=== PATIENT | male | born 1950 | race Caucasian/White ===

== ENCOUNTER 2017-03-07 15:05 | Observation (INO) | payer BC, MEDICARE ==
[2017-03-07] MEDS ORDERED: Ketorolac 30 MG/ML SDV IVPUSH ONE (15:20)
[2017-03-07] MEDS ORDERED: methylPREDNISolone Sodium Succinate 125 MG/2 ML SDV IVPUSH ONE (15:20)
[2017-03-07] MEDS ORDERED: HYDROmorphone 1 MG/ML Syringe IVPUSH ONE (16:06)
[2017-03-07] MEDS ORDERED: Ondansetron 4 MG/2 ML SDV IVPUSH ONE (16:06)
--- NOTE | 2017-03-07 17:21 | EDM.PDOC ---
ED HPI GENERAL MEDICAL PROBLEM - General Chief Complaint: Lower Extremity Injury/Pain Stated Complaint: right hip Time Seen by Provider: 03/07/17 15:07 Source of Information: Reports: Patient History Limitations: Reports: No Limitations - History of Present Illness INITIAL COMMENTS - FREE TEXT/NARRATIVE: Patient comes to ER with complaint of right hip pain. Points to area in right buttocks as area most uncomfortable. First noted mild discomfort there after he fell onto his buttocks three times from a standing position while trying to trim some tree limbs several days ago. Applied ice. Noted that when he was laying in bed last night that his right leg felt somewhat numb all the way to his toes. His description of numbness/discomfort pattern was consistent with sciatic distribution. Denies having sciatica in past. 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 [place] sharp pain, fell to ground. Laid on ground for approximately a half hour and tried to stretch leg, hoped pain would go away. Ultimately he was helped up by a neighbor and was driven to the ER. Denies other injuries. No other complaints. 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 Pain Score (Numeric/FACES): 5 - Related Data Allergies Allergy/AdvReac Type Severity Reaction Status Date / Time amoxicillin [From Augmentin] Allergy Rash Verified 03/07/17 15:10 clavulanic acid Allergy Rash Verified 03/07/17 15:10 [From Augmentin] hydrocodone Allergy Nausea and Verified 03/07/17 15:10 Vomiting Home Meds: Home Meds Insulin Aspart [NovoLOG] 4 unit SUBCUT TIDAC 01/02/16 [History] Insulin Detemir [Levemir] 15 unit SUBCUT BEDTIME 01/02/16 [History] Levothyroxine 75 mcg PO ACBREAKFAST 01/02/16 [History] Loratadine [Claritin] 10 mg PO DAILY PRN 03/19/16 [History] Calcium Carbonate/Vitamin D3 [Calcium 600-Vit D3 800 Tab] 1 tab PO DAILY [History] Lysine HCl [l-Lysine] 500 mg PO DAILY PRN 05/09/16 [History] Tamsulosin [Flomax] 0.8 mg PO BEDTIME 05/09/16 [History] Ubidecarenone [Coenzyme Q-10] 200 mg PO DAILY 05/09/16 [History] Aspirin [Children's Aspirin] 81 mg PO DAILY 05/19/16 [History] Finasteride [Proscar] 5 mg PO DAILY 05/19/16 [History] Pitavastatin [Livalo] 2 mg PO BEDTIME 05/19/16 [History] Past Medical History HEENT History: Reports: Allergic Rhinitis, Hard of Hearing, Otitis Media Other HEENT History: Hearing aid therapy Cardiovascular History: Reports: High Cholesterol, Other (See Below) Other Cardiovascular History: Dyslipidemia Respiratory History: Reports: COPD, Other (See Below) Other Respiratory History: COPD by chest x-ray with no current medical therapy Gastrointestinal History: Reports: None Genitourinary History: Reports: BPH, Chronic Renal Insuffiency, Diabetic Nephropathy, Hydronephrosis, Renal Calculus, Other (See Below) Other Genitourinary History: Stage III chronic renal insufficiency/diabetic nephropathy, BPH with no history of urinary retention or procedures, bilateral nephrolithiasis mostly on the left side with history of initial mild hydronephrosis on 08/02/10 and then again moderate on 04/10/12 Musculoskeletal History: Reports: Amputation, Other (See Below) Other Musculoskeletal History: 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 on 03/19/16 with surgery as below Neurological History: Reports: None Psychiatric History: Reports: None Endocrine/Metabolic History: Reports: Diabetes, Type II, Hypothyroidism, IDDM Hematologic History: Reports: None Immunologic History: Reports: None Oncologic (Cancer) History: Reports: None Dermatologic History: Reports: None - Infectious Disease History Infectious Disease History: Reports: Chicken Pox, Measles, Mumps - Past Surgical History Head Surgeries/Procedures: Reports: None HEENT Surgical History: Reports: Oral Surgery GI Surgical History: Reports: None Musculoskeletal Surgical History: Reports: Amputation, Other (See Below) Oncologic Surgical History: Reports: None Dermatological Surgical History: Reports: None - Past Imaging History Past Imaging History: Reports: CAT Scan, MRI, Ultrasound Social & Family History - Tobacco Use Smoking Status *Q: Never Smoker Second Hand Smoke Exposure: No - Caffeine Use Caffeine Use: Reports: None - Alcohol Use Days Per Week of Alcohol Use: 0 Number of Drinks Per Day: 0 Total Drinks Per Week: 0 - Recreational Drug Use Recreational Drug Use: No Drug Use in Last 12 Months: No - Living Situation & Occupation Living situation: Reports: , with Family Occupation: Employed Review of Systems - Review of Systems Review Of Systems: See Below Constitutional: Reports: No Symptoms Eyes: Denies: Vision Change Ears: Reports: No Symptoms Nose: Reports: No Symptoms Mouth/Throat: Reports: No Symptoms Respiratory: Reports: No Symptoms Cardiovascular: Reports: No Symptoms GI/Abdominal: Reports: No Symptoms Genitourinary: Reports: No Symptoms. Denies: Incontinence Musculoskeletal: Reports: Other (right sided pain in hip/buttocks). Denies: Joint Swelling Skin: Reports: No Symptoms Neurological: Reports: Difficulty Walking (due to pain), Other (numbness/pain in sciatic pattern on right). Denies: Confusion, Dizziness, Headache, Weakness Psychiatric: Reports: No Symptoms ED EXAM, GENERAL - Physical Exam Exam: See Below Exam Limited By: Physical Impairment (pain with movement of right hip/leg) General Appearance: Alert, WD/WN, Moderate Distress Eye Exam: Bilateral Eye: EOMI, PERRL Ears: Normal External Exam Nose: No: Nasal Deformity, Nasal Swelling, Nasal Drainage Throat/Mouth: Normal Inspection, Normal Lips, Normal Voice, No Airway Compromise Head: Atraumatic, Normocephalic Neck: Normal Inspection, Supple, Non-Tender, Full Range of Motion. No: Carotid Bruit Respiratory/Chest: No Respiratory Distress, Lungs Clear, Normal Breath Sounds, No Accessory Muscle Use, Chest Non-Tender Cardiovascular: Normal Peripheral Pulses, Regular Rate, Rhythm, No Edema, No Gallop, No Murmur Peripheral Pulses: 2+: Radial (L), Radial (R), Dorsalis Pedis (L), Dorsalis Pedis (R) GI/Abdominal: Normal Bowel Sounds, Non-Tender, No Distention (Male) Exam: Deferred Rectal (Males) Exam: Deferred Back Exam: No: CVA Tenderness (L), CVA Tenderness (R), Muscle Spasm, Paraspinal Tenderness, Vertebral Tenderness Extremities: No Pedal Edema, Normal Capillary Refill, Limited Range of Motion ( due to pain right lower extremity. Tender near sciatic notch on right. ). No: Pedal Edema, Leg Pain Neurological: Alert, Normal Cognition, Normal Reflexes, Other (no localized sensory deficits) Psychiatric: Normal Affect, Normal Mood Skin Exam: Warm, Dry, Intact, Normal Color Course - Vital Signs Last Recorded V/S: Last Vital Signs Temp 36.8 C 03/07/17 15:24 Pulse 63 03/07/17 15:24 Resp 20 03/07/17 15:24 BP 149/77 H 03/07/17 15:24 Pulse Ox 98 03/07/17 15:24 - Orders/Labs/Meds Orders: Active Orders 24 hr Category Date Time Status Hip Min 2V or 3V w Pelvis Rt [CR] Stat Exams 03/07/17 15:19 Taken UA W/MICROSCOPIC [URIN] Stat Lab 03/07/17 15:15 Uncollected Labs: Laboratory Tests 03/07/17 03/07/17 Range/Units 15:06 15:06 WBC 8.9 (4.0-10.2) K/uL RBC 4.69 (4.33-5.41) M/uL Hgb 14.7 (13.1-16.8) g/dL Hct 43.0 (39.0-49.0) % MCV 91.7 (84.0-98.0) fL MCH 31.3 (28.2-33.3) pg MCHC 34.2 (31.7-36.0) g/dL RDW 13.3 (11.2-14.1) % Plt Count 251 (150-350) K/uL Neut % (Auto) 59.9 (45.0-80.0) % Lymph % (Auto) 28.6 (10.0-50.0) % [place] % (Auto) 9.4 (2.0-14.0) % Eos % (Auto) 1.9 (0.0-5.0) % Baso % (Auto) 0.2 (0.0-2.0) % Neut # (Auto) 5.33 (1.40-7.00) K/uL Lymph # (Auto) 2.55 (0.50-3.50) K/uL [place] # (Auto) 0.84 (0.00-1.00) K/uL Eos # (Auto) 0.17 (0.00-0.50) K/uL Baso # (Auto) 0.02 (0.00-0.20) K/uL Sodium 140 (136-145) mmol/L Potassium 3.7 (3.5-5.1) mmol/L Chloride 105 (98-107) mmol/L Carbon Dioxide 27.3 (21.0-32.0) mmol/L BUN 25 H (7-18) mg/dL Creatinine 1.62 H (0.51-1.17) mg/dL Est Cr Clr Drug Dosing 43.40 mL/min Estimated GFR (MDRD) 43 mL/min Glucose 125 H (74-106) mg/dL Calcium 9.7 (8.5-10.1) mg/dL Meds: Medications Discontinued Medications Generic Name Dose Route Start Last Admin Trade Name Francoisq PRN Reason Stop Dose Admin Hydromorphone HCl 1 mg 03/07/17 16:06 03/07/17 16:19 Dilaudid IVPUSH 03/07/17 16:07 1 mg ONETIME ONE Administration Ketorolac Tromethamine 30 mg 03/07/17 15:20 03/07/17 15:35 Toradol IVPUSH 03/07/17 15:21 30 mg ONETIME ONE Administration Methylprednisolone Sodium Succinate 125 mg 03/07/17 15:20 03/07/17 15:35 Solu-Medrol IVPUSH 03/07/17 15:21 125 mg ONETIME ONE Administration Ondansetron HCl 4 mg 03/07/17 16:06 03/07/17 16:20 Zofran IVPUSH 03/07/17 16:07 4 mg ONETIME ONE Administration - Radiology Interpretation Free Text/Narrative:: plain films pelvis/hip unremarkable. - Re-Assessments/Exams Free Text/Narrative Re-Assessment/Exam: 03/07/17 17:26 Patient given Solumedrol, Toradol, and ultimately Dilaudid with some improvement of discomfort. Baseline labs drawn. Still unable to ambulate due to continued pain. Plan is to admit to observation and continue pain management and support patient in ADLs. CT of lumbar/sacral area ordered to rule out compression fracture given the recent falls with patient landing directly on buttocks. Anticipate 1-2 days of observation while waiting for steroids to help with inflammation and pain, unless new compression fracture or other fracture is identified. 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 (CURRENT) USE OF INSULIN Status: Chronic Priority: Medium Current Visit: No Annotation/Comment:: Sugars have been under good control by his history (4) Diabetic nephropathy Status: Chronic Priority: Medium Current Visit: No Qualifiers: Diabetes mellitus type: type 2 Qualified Code(s): E11.21 - Type 2 diabetes mellitus with diabetic nephropathy (5) BPH (benign prostatic hyperplasia) SNOMED Code(s): 295660150 Code(s): N40.0 - BENIGN PROSTATIC HYPERPLASIA WITHOUT LOWER URINRY TRACT SYMP Status: Chronic Priority: Medium Current Visit: No Annotation/ Comment:: No UTI symptoms or problems with urinary incontinence or retention Qualifiers: Lower urinary tract symptom presence: symptoms absent Qualified Code(s): N40.0 - Benign prostatic hyperplasia without lower urinary tract symptoms (6) COPD (chronic obstructive pulmonary disease) SNOMED Code(s): 59187582 Code(s): J44.9 - CHRONIC OBSTRUCTIVE PULMONARY DISEASE, UNSPECIFIED Status : Chronic Priority: Medium Current Visit: No Annotation/Comment:: currently stable Qualifiers: COPD type: emphysema Emphysema type: panlobular Qualified Code(s): J43.1 - Panlobular emphysema - Problem List Review Problem List Initiated/Reviewed/Updated: Yes - My Orders Last 24 Hours: My Active Orders 03/07/17 15:15 UA W/MICROSCOPIC [URIN] Stat 03/07/17 15:19 Hip Min 2V or 3V w Pelvis Rt [CR] Stat - Assessment/Plan Admission H&P: Please use this note as an admission H&P Last 24 Hours: My Active Orders 03/07/17 15:15 UA W/MICROSCOPIC [URIN] Stat 03/07/17 15:19 Hip Min 2V or 3V w Pelvis Rt [CR] Stat Assessment:: as above Plan: as above. Stable for general supervision.
[2017-03-07] MEDS ORDERED: Ondansetron 4 MG/2 ML SDV IVPUSH PRN (17:39)
[2017-03-07] MEDS ORDERED: LYSINE HCL 500 MG PO PRN (17:40)
[2017-03-07] MEDS ORDERED: Loratadine 10 MG Tab PO PRN (18:00)
[2017-03-07] MEDS ORDERED: Sodium Chloride 0.9% 1,000 ML IV SCH (18:15)
[2017-03-07] MEDS ORDERED: Lidocaine 5% 700 MG Patch TOP SCH (18:30)
[2017-03-07] MEDS ORDERED: PITAVASTATIN 2 MG PO SCH (20:00)
[2017-03-07] MEDS ORDERED: Tamsulosin 0.4 MG Cap.ER PO SCH (20:00)
[2017-03-07] MEDS ORDERED: Insulin Detemir 100 Units/ML 3 ML Pen SUBCUT SCH (20:00)
[2017-03-07] MEDS ORDERED: TRESIBA SUBCUT SCH (21:00)
[2017-03-07] MEDS ORDERED: atorvaSTATin 10 MG Tab PO SCH (21:00)
[2017-03-07] MEDS: Morphine 2 MG/ML Syringe IVPUSH PRN ×2 (21:21→23:25)
[2017-03-08] MEDS: Morphine 2 MG/ML Syringe IVPUSH PRN ×4 (00:39→09:03)
[2017-03-08] MEDS: Sodium Chloride 0.9% 10 ML Syringe FLUSH PRN ×3 (00:40→14:55)
[2017-03-08] MEDS ORDERED: traMADol 50 MG Tab PO PRN (01:27)
[2017-03-08] MEDS: Diazepam 5 MG Tab PO PRN ×2 (01:45→08:26)
[2017-03-08] MEDS ORDERED: Insulin Aspart 100 Units/ML 3 ML Pen SUBCUT SCH (07:00)
[2017-03-08] MEDS ORDERED: Levothyroxine 75 MCG Tab PO SCH (07:30)
[2017-03-08] MEDS ORDERED: Finasteride 5 MG Tab PO SCH (08:00)
[2017-03-08] MEDS ORDERED: Calcium Carbonate/Vitamin D3 1500 MG-400 Units Tab PO SCH (08:00)
[2017-03-08] MEDS ORDERED: Aspirin 81 MG Tab.EC PO SCH (08:00)
[2017-03-08] MEDS: Insulin Aspart 100 Units/ML 3 ML Pen SUBCUT SCH ×2 (08:05→11:27)
[2017-03-08 08:44] VITALS: BP 116/65
[2017-03-08] MEDS ORDERED: Morphine 4 MG/ML Syringe SUBCUT PRN (09:11)
--- NOTE | 2017-03-08 12:25 | PCM.DCSUM1 ---
Discharge Summary - Discharge Data Discharge Date: 03/08/17 Discharge Disposition: DC/Tfer to Acute Hospital 02 Condition: Good - Discharge Diagnosis/Problem(s) (1) Acute right-sided back pain with sciatica SNOMED Code(s): 567927208 ICD Code: M54.41 - LUMBAGO WITH SCIATICA, RIGHT SIDE Status: Acute Priority: High Current Visit: Yes Onset Date: ~03/07/17 Problem Details: Continued pain. Unremarkable CT of LS yesterday. Plan at this time is to transfer patient to [facility] in order to obtain MRI study. Neuro Surgery consult if indicated. 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 Status: Chronic Priority: Medium Current Visit: No Problem Details: Sugars have been under good control by his history (4) Diabetic nephropathy Status: Chronic Priority: Medium Current Visit: No Qualifiers: Diabetes mellitus type: type 2 Qualified Code(s): E11.21 - Type 2 diabetes mellitus with diabetic nephropathy (5) BPH (benign prostatic hyperplasia) SNOMED Code(s): 528392098 ICD Code: N40.0 - BENIGN PROSTATIC HYPERPLASIA WITHOUT LOWER URINRY TRACT SYMP Status: Chronic Priority: Medium Current Visit: No Problem Details : No UTI symptoms or problems with urinary incontinence or retention Qualifiers: Lower urinary tract symptom presence: symptoms absent Qualified Code(s): N40.0 - Benign prostatic hyperplasia without lower urinary tract symptoms (6) COPD (chronic obstructive pulmonary disease) SNOMED Code(s): 39614505 ICD Code: J44.9 - CHRONIC OBSTRUCTIVE PULMONARY DISEASE, UNSPECIFIED Status : Chronic Priority: Medium Current Visit: No Problem Details: currently stable Qualifiers: COPD type: emphysema Emphysema type: panlobular Qualified Code(s): J43.1 - Panlobular emphysema - Patient Summary/Data Complications: None Hospital Course: Pain somewhat improved with medication but still quite problematic, especially when patient attempts to sit up or ambulate. - Discharge Plan Home Medications: Home Meds Insulin Aspart [NovoLOG] 6 unit SUBCUT TIDAC 01/02/16 [History] Levothyroxine 75 mcg PO ACBREAKFAST 01/02/16 [History] Loratadine [Claritin] 10 mg PO DAILY PRN 03/19/16 [History] Calcium Carbonate/Vitamin D3 [Calcium 600-Vit D3 800 Tab] 1 tab PO DAILY [History] Lysine HCl [l-Lysine] 500 mg PO DAILY PRN 05/09/16 [History] Tamsulosin [Flomax] 0.8 mg PO BEDTIME 05/09/16 [History] Ubidecarenone [Coenzyme Q-10] 200 mg PO BEDTIME 05/09/16 [History] Aspirin [Children's Aspirin] 81 mg PO DAILY 05/19/16 [History] Finasteride [Proscar] 5 mg PO DAILY 05/19/16 [History] Insulin Degludec [Tresiba Flextouch U-200] 18 unit SUBCUT BEDTIME 03/07/17 [ History] atorvaSTATin [Lipitor] 20 mg PO BEDTIME 03/07/17 [History] Patient Handouts: Sciatica Forms: ED Department Discharge Referrals: Lakesha Mcconnell CASE MANAGEMENT SOCIAL WORKER [Primary Care Provider] - - Discharge Summary/Plan Comment DC Time >30 min.: No - General Info Date of Service: 03/08/17 Admission Dx/Problem (Free Text: Right low back pain/sciatica Functional Status: Reports: Tolerating Diet, Other (Pain improved but still present. ). Denies: New Symptoms - Review of Systems General: Reports: No Symptoms HEENT: Reports: No Symptoms Pulmonary: Reports: No Symptoms Cardiovascular: Reports: No Symptoms Gastrointestinal: Reports: No Symptoms Genitourinary: Reports: No Symptoms Musculoskeletal: Reports: Back Pain, Leg Pain Skin: Reports: No Symptoms Neurological: Reports: Paresthesia (at times, right leg), Difficulty Walking ( due to pain) Psychiatric: Reports: No Symptoms - Patient Data Vitals - Most Recent: Last Vital Signs Temp 36.1 C 03/08/17 08:00 Pulse 85 03/08/17 08:00 Resp 18 03/08/17 00:00 BP 116/65 03/08/17 08:00 Pulse Ox 93 L 03/08/17 08:00 Weight - Most Recent: 80.286 kg I&O - Last 24 hours: Intake & Output 03/07/17 03/08/17 03/08/17 22:59 06:59 14:59 Intake Total 240 1000 360 Output Total 750 Balance 240 250 360 Lab Results - Last 24 hrs: Laboratory Results - last 24 hr 03/07/17 03/07/17 03/07/17 Range/Units 18:10 18:17 20:58 POC Glucose 136 H 257 H* (65-110) mg/dl Specimen Type Urinvoid Urine Color Yellow Urine Appearance Cloudy Urine pH 5.0 (5.0-9.0) Ur Specific [place] 1.025 (1.005-1.030) Urine Protein Negative (NEGATIVE) mg/dL Urine Glucose (UA) 100 H (NEGATIVE) mg/dL Urine Ketones Negative (NEGATIVE) mg/dL Urine Occult Blood Negative (NEGATIVE) Urine Nitrite Negative (NEGATIVE) Urine Bilirubin Negative (NEGATIVE) Urine Urobilinogen 0.2 (0.2-1.0) E.U./dL Ur Leukocyte Esterase Negative (NEGATIVE) Urine RBC Not seen /HPF Urine WBC 0-5 /HPF Ur Epithelial Cells Rare /LPF Amorphous Sediment Many H (0/HPF) /HPF Urine Bacteria Few (NONE TO FEW) /HPF 03/08/17 03/08/17 Range/Units 07:50 11:19 POC Glucose 241 H 237 H (65-110) mg/dl Specimen Type Urine Color Urine Appearance Urine pH (5.0-9.0) Ur Specific [place] (1.005-1.030) Urine Protein (NEGATIVE) mg/dL Urine Glucose (UA) (NEGATIVE) mg/dL Urine Ketones (NEGATIVE) mg/dL Urine Occult Blood (NEGATIVE) Urine Nitrite (NEGATIVE) Urine Bilirubin (NEGATIVE) Urine Urobilinogen (0.2-1.0) E.U./dL Ur Leukocyte Esterase (NEGATIVE) Urine RBC /HPF Urine WBC /HPF Ur Epithelial Cells /LPF Amorphous Sediment (0/HPF) /HPF Urine Bacteria (NONE TO FEW) /HPF Med Orders - Current: Current Medications Aspirin (Halfprin) 81 mg PO DAILY [facility] Last Admin: 03/08/17 07:52 Dose: 81 mg Atorvastatin Calcium (Lipitor) 20 mg PO BEDTIME [facility] Last Admin: 03/07/17 21:12 Dose: 20 mg Calcium Carbonate (Caltrate 600+D 1500 Mg-400 Units) 1 tab PO DAILY [facility] Last Admin: 03/08/17 07:52 Dose: 1 tab Coenzyme Q10 (Coenzyme Q10) 200 mg PO BEDTIME [facility] Last Admin: 03/07/17 21:13 Dose: 200 mg Diazepam (Valium.) 5 mg PO TID PRN PRN Reason: Spasms Last Admin: 03/08/17 08:26 Dose: 5 mg Finasteride (Proscar) 5 mg PO DAILY [facility] Last Admin: 03/08/17 07:52 Dose: 5 mg Insulin Aspart (Novolog) 6 unit SUBCUT TIDAC [facility] Last Admin: 03/08/17 11:27 Dose: 6 unit Levothyroxine Sodium (Levothyroxine) 75 mcg PO ACBREAKFAST [facility] Last Admin: 03/08/17 07:53 Dose: 75 mcg Lidocaine (Lidoderm 5%) 700 mg TOP BEDTIME [facility] Last Admin: 03/07/17 18:59 Dose: 700 mg Loratadine (Claritin) 10 mg PO DAILY PRN PRN Reason: Allergies Miscellaneous Information (Remove Patch) 1 ea TRDERM DAILY [facility] Last Admin: 03/08/17 07:53 Dose: 1 ea Morphine Sulfate (Morphine) 2 mg IVPUSH Q1H PRN PRN Reason: Pain (moderate 4-6) Last Admin: 03/08/17 09:03 Dose: 2 mg Non-Formulary Medication (Lysine Hcl [L-Lysine]) 500 mg PO DAILY PRN PRN Reason: cold sores Ondansetron HCl (Zofran) 4 mg IVPUSH Q6H PRN PRN Reason: Nausea/Vomiting Last Admin: 03/07/17 23:25 Dose: 4 mg Tresiba (Insulin Degludec) Flextouch Own Med 0 each SUBCUT BEDTIME [facility] Last Admin: 03/07/17 21:13 Dose: 18 each Sodium Chloride (Saline Flush) 10 ml FLUSH ASDIRECTED PRN PRN Reason: Keep Vein Open Last Admin: 03/08/17 04:29 Dose: 10 ml Tamsulosin HCl (Flomax) 0.8 mg PO BEDTIME [facility] Last Admin: 03/07/17 21:12 Dose: 0.8 mg Tramadol HCl (Ultram) 100 mg PO Q8H PRN PRN Reason: Pain Last Admin: 03/08/17 01:45 Dose: 100 mg Discontinued Medications Coenzyme Q10 (Coenzyme Q10) 200 mg PO DAILY [facility] Hydromorphone HCl (Dilaudid) 1 mg IVPUSH ONETIME ONE Stop: 03/07/17 16:07 Last Admin: 03/07/17 16:19 Dose: 1 mg Sodium Chloride (Normal Saline) 1,000 mls @ 150 mls/hr IV ASDIRECTED [facility] Stop: 03/08/17 00:54 Last Admin: 03/07/17 18:59 Dose: 150 mls/hr Insulin Aspart (Novolog) 4 unit SUBCUT TIDAC [facility] Insulin Detemir (Levemir) 15 unit SUBCUT BEDTIME [facility] Last Admin: 03/07/17 22:03 Dose: Not Given Ketorolac Tromethamine (Toradol) 30 mg IVPUSH ONETIME ONE Stop: 03/07/17 15:21 Last Admin: 03/07/17 15:35 Dose: 30 mg Methylprednisolone Sodium Succinate (Solu-Medrol) 125 mg IVPUSH ONETIME ONE Stop: 03/07/17 15:21 Last Admin: 03/07/17 15:35 Dose: 125 mg Morphine Sulfate (Morphine) 3 mg SUBCUT Q2H PRN PRN Reason: Pain Non-Formulary Medication (Pitavastatin [Livalo]) 2 mg PO BEDTIME [facility] Last Admin: 03/07/17 22:03 Dose: Not Given Ondansetron HCl (Zofran) 4 mg IVPUSH ONETIME ONE Stop: 03/07/17 16:07 Last Admin: 03/07/17 16:20 Dose: 4 mg - Exam General: Reports: Alert, Oriented HEENT: Reports: Pupils Equal, Pupils Reactive, EOMI, Mucous Membr. Moist/[place] Neck: Reports: Supple Lungs: Reports: Clear to Auscultation, Normal Respiratory Effort Cardiovascular: Reports: Regular Rate, Regular Rhythm GI/Abdominal Exam: Normal Bowel Sounds, Soft, Non-Tender, No Distention (Male) Exam: Deferred Rectal (Males) Exam: Deferred Back Exam: Reports: Other (Tender near sciatic notch right buttock area). Denies: CVA Tenderness (L), CVA Tenderness (R), Paraspinal Tenderness, Vertebral Tenderness Extremities: No Pedal Edema, Normal Capillary Refill, Limited Range of Motion ( right leg due to pain originating in hip area on right) Skin: Reports: Warm, Dry, Intact Neurological: Reports: No New Focal Deficit, Other (Diminished reflex noted right patella when compared to left. Strength appears to be symetric in limbs, some limitation in testing due to patient's pain complaint. ) Psy/Mental Status: Reports: Alert, Normal Affect, Normal Mood *Q Meaningful Use (DIS) - VTE *Q VTE Criteria *Q: - Stroke *Q Stroke Criteria *Q: - AMI *Q AMI Criteria *Q:
[2017-03-08] MEDS ORDERED: Morphine 10 MG/ML Syringe IVPUSH ONE (12:32)
[2017-03-08] MEDS ORDERED: Morphine 10 MG/ML Syringe ONE (14:49)
== END 2017-03-08 15:10 ==
LOC: LL.ED 15:05 → LL.MS 17:06
PROVIDERS: ADMIT Emergency Medicine; ATTEND Emergency Medicine
DX: M54.41 Lumbago with sciatica, right side (principal); N18.3 Chronic kidney disease, stage 3 (moderate); E11.22 Type 2 diabetes mellitus with diabetic chronic kidney disease; E78.5 Hyperlipidemia, unspecified; E11.21 Type 2 diabetes mellitus with diabetic nephropathy; Z79.4 Long term (current) use of insulin; E03.9 Hypothyroidism, unspecified; N40.0 Benign prostatic hyperplasia without lower urinary tract symptoms; J43.1 Panlobular emphysema; Z79.82 Long term (current) use of aspirin; Z79.899 Other long term (current) drug therapy; Z88.1 Allergy status to other antibiotic agents; Z88.8 Allergy status to other drugs, medicaments and biological substances; Z98.890 Other specified postprocedural states
CPT/HCPCS: 36415; 72131; 73502; 80048; 81001; 82962; 85025; 96361; 96374; 96375; 96376; 99285; A9270; G0378; J1170; J1815; J1885; J2270; J2405; J2930; J7030; J7050

== ENCOUNTER 2019-08-01 09:23 | Observation (INO) | payer MEDICARE, BC ==
--- NOTE | 2019-08-01 09:26 | EDM.PDOC ---
ED HPI GENERAL MEDICAL PROBLEM - General Chief Complaint: General Stated Complaint: shortness of breath Time Seen by Provider: 08/01/19 09:26 Source of Information: Reports: Patient, Family (, daughter), Old Records ( [facility] chart/EMR) History Limitations: Reports: No Limitations - History of Present Illness INITIAL COMMENTS - FREE TEXT/NARRATIVE: The patient was referred to the emergency room by OUMAR Briggs from [facility] for evaluation of mild URI symptoms associated with progressive moderate dyspnea since 07/28/19. Note that during this provider's evaluation the patient had bradycardia at 30-40s was noted with patient immediately brought to the emergency room for further evaluation. The patient did drive himself to the clinic initially for initial evaluation. The patient denies any chest pain/ pressure, heart flutter, dizziness, orthostasis, orthopnea, diaphoresis, paresthesias, recent decreased exercise tolerance, or any other anginal-type symptoms. No recent history of abdominal pain, heartburn, nausea, diarrhea, melena, gross hematochezia, or any food intolerance, including fatty foods, etc.. He denies any a gross hematuria, colic, or other UTI symptoms. The patient is normally physically active with no history of fall, injury, etc. The patient also denies any recent fever, cough, wheezing, etc. with mild URI symptoms as above. No history of known exposure to infection or history of travel with the patient receiving his influenza booster this season. He denies any specific pain or discomfort. He did not take his medications this morning. Onset: Gradual Onset Date: 07/28/19 Duration: Getting Worse Location: Reports: Other (No pain) Quality: Reports: Same as Previous Episode Severity: Moderate Improves with: Reports: Rest Worsens with: Reports: Other (Activity/walking) Context: Reports: Activity, Other (As above). Denies: Sick Contact, Trauma Associated Symptoms: Reports: Shortness of Breath. Denies: Chest Pain, Cough, cough w sputum, Diaphoresis, Fever/Chills, Headaches, Loss of Appetite, Malaise , Nausea/Vomiting, Syncope, Weakness Treatments TRAVELING REPRESENTATIVE: Reports: Other (see below) (None) - Related Data Allergies Allergy/AdvReac Type Severity Reaction Status Date / Time amoxicillin [From Augmentin] Allergy Rash Verified 08/01/19 09:24 cephalexin [From Keflex] Allergy Rash Verified 08/01/19 10:04 clavulanic acid Allergy Rash Verified 08/01/19 09:24 [From Augmentin] hydrocodone Allergy Nausea and Verified 08/01/19 09:24 Vomiting Home Meds: Home Meds Insulin Aspart [NovoLOG] 10 unit SUBCUT TIDAC 01/02/16 [History] Levothyroxine 75 mcg PO BEDTIME 01/02/16 [History] Loratadine [Claritin] 10 mg PO DAILY PRN 03/19/16 [History] Calcium Carbonate/Vitamin D3 [Calcium 600-Vit D3 800 Tab] 1 tab PO DAILY [History] Tamsulosin [Flomax] 0.8 mg PO BEDTIME 05/09/16 [History] Ubidecarenone [Coenzyme Q-10] 100 mg PO BEDTIME 05/09/16 [History] Aspirin [Children's Aspirin] 81 mg PO BEDTIME 05/19/16 [History] Insulin Degludec [Tresiba Flextouch U-200] 30 unit SUBCUT BEDTIME 03/07/17 [ History] atorvaSTATin [Lipitor] 20 mg PO BEDTIME 03/07/17 [History] Acetaminophen [Tylenol Extra Strength] 1,000 mg PO Q6HR PRN 08/01/19 [History] Ferrous Sulfate [Iron] 325 mg PO DAILY 08/01/19 [History] Metoprolol Tartrate 25 mg PO BID 08/01/19 [History] Lewisberry-3 Fatty Acids/Fish Oil [Fish Oil 1,000 mg Softgel] 1 each PO DAILY [History] Past Medical History HEENT History: Reports: Allergic Rhinitis, Hard of Hearing, Otitis Media. Denies: Cataract, Glaucoma, Impaired Vision, Macular Degeneration Other HEENT History: Presbycusis with chronic noise exposure but no known acute acoustic trauma with bilateral hearing aid therapy. Cardiovascular History: Reports: Arrhythmia, Bypass, CAD, Cardiomyopathy, Heart Failure, High Cholesterol, Hypertension, Other (See Below). Denies: Afib, Aneurysm, Blood Clots/VTE/DVT, Heart Murmur, SC, PVD, Syncope Other Cardiovascular History: Severe multivessel coronary artery disease requiring bypass surgery as below. PVCs bradycardia, and bigeminy. Dyslipidemia. Grade 1 diastolic dysfunction. Respiratory History: Reports: Bronchitis, Recurrent, COPD, Intubation, Previous , Other (See Below). Denies: Asthma, Intubation, Difficult, PE, Pneumothorax, Sleep Apnea, TB Other Respiratory History: COPD by chest x-ray with no current medical therapy Gastrointestinal History: Reports: Other (See Below). Denies: Celiac Disease, Cholelithiasis, Chronic Constipation, Chronic Diarrhea, Colon Polyp, Fatty Liver , Fecal Incontinence, GERD, GI Bleed, Hiatal Hernia, Inflammatory Bowel Disease , Irritable Bowel Syndrome, Jaundice, Pancreatitis, PUD Other Gastrointestinal History: Small umbilical hernia. Genitourinary History: Reports: BPH, Chronic Renal Insuffiency, Diabetic Nephropathy, Hydronephrosis, Renal Calculus, Other (See Below). Denies: STD, Urinary Incontinence, UTI, Recurrent Other Genitourinary History: Stage III chronic renal insufficiency/diabetic nephropathy, BPH with no history of urinary retention or procedures, bilateral nephrolithiasis with significant right-sided urolithiasis in 2016 requiring procedures as below and additional history of initial mild hydronephrosis on 08/02 and then again moderate on 04/10/12 Musculoskeletal History: Reports: Amputation, Arthritis, Back Pain, Chronic, Neck Pain, Chronic, Osteoarthritis, Other (See Below). Denies: Fracture, Gout, RA, SLE Other Musculoskeletal History: 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 on 03/19/16 with surgery as below Neurological History: Reports: Neuropathy, Diabetic, Neuropathy, Peripheral. Denies: None, Alzheimers Disease, Cerebral Aneurysms, Concussion, CVA, Head Trauma, Migraines, MS, Parkinson's, Seizure, TIA, Vertigo Psychiatric History: Reports: None. Denies: Abuse, Victim of, ADD, ADHD, Addiction, Anxiety, Dementia, Depression, Psych Hospitalization(s), PTSD, Suicide Attempt, Suicidal Ideation Endocrine/Metabolic History: Reports: Diabetes, Type II, Hypomagnesemia, Hypothyroidism, IDDM. Denies: Diabetes, Type I, Diabetes Mellitus, Type 3c, Osteopenia, Osteoporosis Hematologic History: Reports: Anemia, Iron Deficiency. Denies: Blood Transfusion(s) Immunologic History: Reports: None. Denies: AIDS, HIV, SLE Oncologic (Cancer) History: Reports: None. Denies: Basal Cell Carcinoma, Colon , Hodgkin's Lymphoma, Leukemia, Lymphoma, Malignant Melanoma, Non-Hodgkin's Lymphoma, Prostate, Squamous Cell Carcinoma Dermatologic History: Reports: None. Denies: Eczema, Psoriasis - Infectious Disease History Infectious Disease History: Reports: C-Difficile (Colitis on 06/21/16), Chicken Pox, Measles, MRSA (MRSA urosepsis on 05/09/16 secondary to urolithiasis/ hydronephrosis.), Mumps. Denies: Meningitis, Mononucleosis, Pertussis ( Whooping Cough), Rheumatic Fever, Rubella, Scarlet Fever, Shingles, TB, VRE - Past Surgical History Head Surgeries/Procedures: Reports: None HEENT Surgical History: Reports: Oral Surgery, Other (See Below). Denies: Adenoidectomy, Cataract Surgery, Eye Surgery, Laser Surgery, LASIK, Myringotomy w Tube(s), Naso-Sinus Surgery, Tonsillectomy Other HEENT Surgeries/Procedures: Complete teeth extraction at about age 31 including his wisdom teeth. Cardiovascular Surgical History: Reports: Coronary Artery Bypass, Other (See Below). Denies: Coronary Artery Stent, Pacer, Percutaneous Transluminal Angioplasty, Varicose Other Cardiovascular Surgeries/Procedures: Five-vessel CABG on 05/05/19. Respiratory Surgical History: Reports: None. Denies: Thoracentesis GI Surgical History: Reports: None. Denies: Appendectomy, Cholecystectomy, Colonoscopy, EGD, Hernia, Abdominal, Hernia, Inguinal, Hernia Repair/Other Male Surgical History: Reports: Circumcision, Kidney Stone Extraction, Lithotripsy (ESWL), Renal Calculus, Ureteral Stent, Vasectomy. Denies: TURP- Transurethral Resection of Prostate Other Male Surgeries/Procedures: Cystoscopy on 12/09/12. Cystoscopy with right sided stent placement on 04/08/16 with subsequent laser lithotripsy, stent placement, and basket stone extraction on 05/04/16. Circumcision as an . Vasectomy in 1985. Endocrine Surgical History: Reports: None. Denies: Thyroid Biopsy Neurological Surgical History: Reports: None. Denies: C-Spine, Discectomy, Laminectomy, Lumbar Spine, Sacral Spine, Spinal Fusion, Thoracic Spine, Vertebroplasty Musculoskeletal Surgical History: Reports: Amputation, Other (See Below). Denies: Arthroscopic Procedure, Carpal Tunnel, Ganglion Cyst, Joint Replacement , ORIF, Shoulder Surgery Other Musculoskeletal Surgeries/Procedures:: Amputation of the distal phalanx of digit #2 of the right hand with dissection to the PIP joint on 03/19/16 Oncologic Surgical History: Reports: None Dermatological Surgical History: Reports: None - Past Imaging History Past Imaging History: Reports: Angiography (05/02/19.), Cardiac Echo (05/01/19 with decreased ejection fraction of 4550 percent and findings as above.), CAT Scan (CT of the lumbar spine on 03/07/17 CT of the abdomen and pelvis on 01/01/17 , 05/11/16, 04/07/16, 10/23/12, and 04/03/12. CT of the temporal region on .), MRI (Brain on 03/12/07), Stress Testing (Cardiolite stress test on with negative Cardiolite scan however suspicious exercise portion resulting in cardiology referral as above.), Ultrasound (Bilateral renal ultrasound on , 11/13/16, 08/20/15, 09/04/12, 04/10/12, 02/20/12 and 08/12/10..) Social & Family History - Family History HEENT: Reports: None. Denies: Glaucoma, Macular Degeneration, Retinal Detachment Cardiac: Reports: CAD, Heart Failure, SC, Stent, Other (See Below). Denies: Afib, Aneurysm, Arrhythmia, Blood Clots/VTE/DVT, Heart Murmur, High Cholesterol , Hypertension, Pacemaker, PVD/COD, Syncope Other Cardiac Family History: Brother with SC in his 50s with PTCA/stent 1; another brother with an SC and a sister with an SC at unknown ages with unknown procedures. Father with an SC at fatal at about age 67. Mother with history of SC and CHF fatal at age 60. Respiratory: Reports: None. Denies: Asthma, COPD, PE, Pneumothorax, Sleep Apnea GI: Reports: None. Denies: Celiac Disease, Cholelithiasis, Colon Polyps, GERD, GI bleed, Hepatitis, Inflammatory Bowel Disease, Irritable Bowel Syndrome, Jaundice, Pancreatitis, PUD : Reports: None. Denies: Renal Calculus, Renal Disease/Insufficiency OBGYN: Reports: None. Denies: Endometriosis, Recurrent Spontaneous Musculoskeletal: Reports: None. Denies: Gout, RA, SLE Neurological: Reports: None. Denies: Alzheimers Disease, Cerebral Aneurysms, CVA, Dementia, Migraines, MS, Parkinson's, Seizure, TIA Psychiatric: Reports: None. Denies: Abuse, Victim of, ADD, ADHD, Anxiety, Depression, Psych Hospitalization(s), PTSD, Suicide Attempt Endocrine/Metabolic: Reports: Diabetes, type II, IDDM, Other (See Below). Denies: Hypothyroidism Other Endocrine/Metabolic Family History: Family history of AODM in sister with IDDM in sister x 2 and father Hematologic: Reports: None. Denies: Anemia, SLE Immunologic: Reports: None. Denies: AIDS, HIV, SLE Dermatologic: Reports: None. Denies: Eczema, Psoriasis Oncologic: Reports: Brain, Other (See Below). Denies: Bladder, Colon, Hodgkin' s Lymphoma, Leukemia, Lymphoma, Non-Hodgkin's Lymphoma, Prostate, Skin Other Oncologic Family History: Brother with fatal brain cancer? at about age 60. - Tobacco Use Smoking Status *Q: Never Smoker Tobacco Use Within Last Twelve Months: No Used Tobacco, but Quit: No Smoking Cessation Information Provided To Patient: No Second Hand Smoke Exposure: No Second Hand Smoke Education Provided: No - Caffeine Use Caffeine Use: Reports: None. Denies: Coffee, Energy Drinks, Soda, Tea - Alcohol Use Alcohol Use History: No Days Per Week of Alcohol Use: 0 Number of Drinks Per Day: 0 Number of Drinks Per Day Comment: No previous DWIs, problems with alcohol abuse , etc. 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 ED EXAM, GENERAL - Physical Exam Exam: See Below Exam Limited By: No Limitations General Appearance: Alert, WD/WN, No Apparent Distress Eye Exam: Bilateral Eye: EOMI, Normal Inspection (No nystagmus), PERRL Ears: Normal External Exam, Normal Canal, Normal TMs, Hearing Loss (Moderate to severe bilateral presbycusis with patient not having his hearing aids today) Nose: Normal Mucosa, No Blood, Clear Rhinorrhea Throat/Mouth: Normal Lips, Normal Teeth, Normal Gums. No: Normal Oropharynx ( Trace erythema in the posterior pharynx without pinpoint white exudative peritonsillar abscess), Normal Voice, No Airway Compromise, Dysphagia, Perioral Cyanosis Head: Atraumatic, Normocephalic. No: Facial Swelling, Facial Tenderness, Sinus Tenderness Neck: Normal Inspection, Supple, Non-Tender, Full Range of Motion. No: Carotid Bruit, Lymphadenopathy (L), Lymphadenopathy (R), Thyromegaly Respiratory/Chest: No Respiratory Distress, No Accessory Muscle Use, Chest Non- Tender, Rales (Mild bilateral basilar). No: Pleural Rub, Retractions Cardiovascular: Normal Peripheral Pulses, No Edema, No Gallop, No JVD, No Murmur , No Rub, Bradycardia (As below), Extra Beats (Frequent with borderline occasional bradycardia). No: Gallop/S3, Gallop/S4, Friction Rub Peripheral Pulses: 2+: Radial (L), Radial (R), Dorsalis Pedis (L), Dorsalis Pedis (R) GI/Abdominal: Normal Bowel Sounds, Soft, Non-Tender, No Organomegaly, No Distention, No Abnormal Bruit, No Mass, Other. No: Guarding (Male) Exam: Deferred Rectal (Males) Exam: Deferred Back Exam: Normal Inspection, Full Range of Motion. No: CVA Tenderness (L), CVA Tenderness (R), Muscle Spasm Extremities: Normal Inspection, Normal Range of Motion, Non-Tender, No Pedal Edema, Normal Capillary Refill. No: Anamaria's Sign Neurological: Alert, Oriented, CN II-XII Intact, Normal Cognition, Normal Gait, Normal Reflexes (Negative Babinski's), No Motor/Sensory Deficits Psychiatric: Normal Affect, Normal Mood Skin Exam: Warm, Dry, Intact, Normal Color, No Rash. No: Diaphoretic, Wound/ Incision Lymphatic: No Adenopathy EKG INTERPRETATION EKG Date: 08/01/19 Time: 09:31 Rhythm: Other (Occasional PVCs) Rate (Beats/Min): 65 Ruth: Normal (Left) P-Wave: Present QRS: Wide (0.10 seconds representing repolarization changes) QT: Normal W[place]/PQ Interval: 0.18 seconds with extreme poor R-wave progression in the anterior leads Comparison: NA - No Prior EKG (No post CABG EKG available for comparison) EKG Interpretation Comments: 1. No acute ischemic changes 2. Reolarization changes 3. PVCs Course - Vital Signs Last Recorded V/S: Last Vital Signs Temp 36.2 C 08/01/19 09:30 Pulse 66 08/01/19 11:20 Resp 15 08/01/19 11:20 BP 145/89 H 08/01/19 11:20 Pulse Ox 99 08/01/19 11:20 Vital Signs - 24 hr 08/01/19 08/01/19 08/01/19 09:23 09:27 09:30 Temperature [ 36.2 C 36.2 C Temporal] Pulse, Peripheral Pulse, 78 78 Peripheral [ Right Pulse Oximetry] Respiratory 15 15 Rate Blood Pressure Blood Pressure 151/95 H 151/95 H [Right Upper Arm] O2 Sat by Pulse 97 97 Oximetry O2 Sat by Pulse 97 Oximetry [Room Air] 08/01/19 08/01/19 08/01/19 09:35 10:01 10:05 Temperature [ Temporal] Pulse, Peripheral Pulse, 71 73 69 Peripheral [ Right Pulse Oximetry] Respiratory 16 16 17 Rate Blood Pressure Blood Pressure 142/65 H 158/71 H 143/84 H [Right Upper Arm] O2 Sat by Pulse 97 98 98 Oximetry O2 Sat by Pulse Oximetry [Room Air] 08/01/19 08/01/19 08/01/19 10:20 10:25 10:35 Temperature [ Temporal] Pulse, 78 Peripheral Pulse, 69 62 Peripheral [ Right Pulse Oximetry] Respiratory 18 15 Rate Blood Pressure 142/83 H Blood Pressure 177/64 H 142/83 H [Right Upper Arm] O2 Sat by Pulse 97 99 Oximetry O2 Sat by Pulse Oximetry [Room Air] 08/01/19 08/01/19 08/01/19 10:50 11:15 11:20 Temperature [ Temporal] Pulse, Peripheral Pulse, 66 66 66 Peripheral [ Right Pulse Oximetry] Respiratory 16 14 15 Rate Blood Pressure Blood Pressure 153/87 H 145/88 H 145/89 H [Right Upper Arm] O2 Sat by Pulse 99 99 99 Oximetry O2 Sat by Pulse Oximetry [Room Air] - Orders/Labs/Meds Orders: Active Orders 24 hr Category Date Time Status Cardiac Monitoring [RC] . DIRECTED Care 08/01/19 09:27 Active EKG Documentation Completion [RC] ASDIRECTED Care 08/01/19 09:27 Active Oxygen Therapy, ED [RC] PRN Care 08/01/19 09:27 Active Peripheral IV Care [RC] . DIRECTED Care 08/01/19 09:27 Active Pulse Oximetry [RC] CONTINUOUS Care 08/01/19 09:27 Active Up With Assistance [RC] PFP Care 08/01/19 09:27 Active Vital Signs [RC] PFP Care 08/01/19 09:27 Active Nothing per Oral Now Diet [DIET] Diet 08/01/19 Breakfast Active Chest 1V Frontal [CR] Stat Exams 08/01/19 09:27 Taken CULTURE STREP A CONFIRMATION [RM] Stat Lab 08/01/19 09:30 Results STREP SCRN A RAPID W CULT CONF [] Stat Lab 08/01/19 09:30 Results Sodium Chloride 0.9% [Saline Flush] Med 08/01/19 09:27 Active 10 ml FLUSH ASDIRECTED PRN Obtain Past Medical Record [OM.PC] Urgent Oth 08/01/19 09:27 Active Peripheral IV Insertion Adult [OM.PC] Stat Oth 08/01/19 09:27 Ordered Resuscitation Status Stat Resus Stat 08/01/19 09:27 Ordered Medication Orders Sodium Chloride (Saline Flush) 10 ml FLUSH ASDIRECTED PRN PRN Reason: Keep Vein Open Last Admin: 08/01/19 09:45 Dose: 10 ml Labs: Laboratory Tests 08/01/19 08/01/19 08/01/19 Range/Units 09:25 09:25 09:25 WBC 7.6 (4.0-10.2) K/uL RBC 4.71 (4.33-5.41) M/uL Hgb 14.1 D (13.1-16.8) g/dL Hct 44.1 (39.0-49.0) % MCV 93.6 (84.0-98.0) fL MCH 29.9 (28.2-33.3) pg MCHC 32.0 (31.7-36.0) g/dL RDW 16.1 H (11.2-14.1) % Plt Count 204 D (150-350) K/uL Neut % (Auto) 46.8 (45.0-80.0) % Lymph % (Auto) 36.0 (10.0-50.0) % Hendricks % (Auto) 11.0 (2.0-14.0) % Eos % (Auto) 5.5 H (0.0-5.0) % Baso % (Auto) 0.7 (0.0-2.0) % Neut # (Auto) 3.58 (1.40-7.00) K/uL Lymph # (Auto) 2.75 (0.50-3.50) K/uL Hendricks # (Auto) 0.84 (0.00-1.00) K/uL Eos # (Auto) 0.42 (0.00-0.50) K/uL Baso # (Auto) 0.05 (0.00-0.20) K/uL PT 9.8 (9.5-12.0) SEC INR 1.0 APTT 26.1 (24.5-32.8) SEC D-Dimer, Quantitative 614 H (0-400) ng/mL Sodium (136-145) mmol/L Potassium (3.5-5.1) mmol/L Chloride (98-107) mmol/L Carbon Dioxide (21.0-32.0) mmol/L BUN (7-18) mg/dL Creatinine (0.51-1.17) mg/dL Est Cr Clr Drug Dosing mL/min Estimated GFR (MDRD) mL/min Glucose (74-106) mg/dL Lactic Acid (0.4-2.0) mmol/L Uric Acid (2.6-7.2) mg/dL Calcium (8.5-10.1) mg/dL Magnesium (1.8-2.4) mg/dL Total Bilirubin (0.2-1.0) mg/dL AST (15-37) U/L ALT (12-78) U/L Alkaline Phosphatase (46-116) IU/L Creatine Kinase (26-308) U/L Creatine Kinase Index (0.0-2.5) % CK-MB (CK-2) (0.00-3.60) ng/mL Troponin I (0.000-0.056) ng/mL NT-Pro-B Natriuret Pep (0-125) pg/mL Total Protein (6.4-8.2) g/dL Albumin (3.4-5.0) g/dL TSH, Ultra Sensitive (0.358-3.740) mIU/mL 08/01/19 08/01/19 Range/Units 09:25 09:25 WBC (4.0-10.2) K/uL RBC (4.33-5.41) M/uL Hgb (13.1-16.8) g/dL Hct (39.0-49.0) % MCV (84.0-98.0) fL MCH (28.2-33.3) pg MCHC (31.7-36.0) g/dL RDW (11.2-14.1) % Plt Count (150-350) K/uL Neut % (Auto) (45.0-80.0) % Lymph % (Auto) (10.0-50.0) % Hendricks % (Auto) (2.0-14.0) % Eos % (Auto) (0.0-5.0) % Baso % (Auto) (0.0-2.0) % Neut # (Auto) (1.40-7.00) K/uL Lymph # (Auto) (0.50-3.50) K/uL Hendricks # (Auto) (0.00-1.00) K/uL Eos # (Auto) (0.00-0.50) K/uL Baso # (Auto) (0.00-0.20) K/uL PT (9.5-12.0) SEC INR APTT (24.5-32.8) SEC D-Dimer, Quantitative (0-400) ng/mL Sodium 141 (136-145) mmol/L Potassium 4.2 (3.5-5.1) mmol/L Chloride 107 (98-107) mmol/L Carbon Dioxide 25.1 (21.0-32.0) mmol/L BUN 36 H (7-18) mg/dL Creatinine 1.57 H (0.51-1.17) mg/dL Est Cr Clr Drug Dosing 40.64 mL/min Estimated GFR (MDRD) 44 mL/min Glucose 117 H (74-106) mg/dL Lactic Acid 0.9 (0.4-2.0) mmol/L Uric Acid 6.3 (2.6-7.2) mg/dL Calcium 9.3 (8.5-10.1) mg/dL Magnesium 1.9 (1.8-2.4) mg/dL Total Bilirubin 0.5 (0.2-1.0) mg/dL AST 26 (15-37) U/L ALT 32 (12-78) U/L Alkaline Phosphatase 75 (46-116) IU/L Creatine Kinase 641 H (26-308) U/L Creatine Kinase Index 0.6 (0.0-2.5) % CK-MB (CK-2) 3.90 H (0.00-3.60) ng/mL Troponin I 0.000 (0.000-0.056) ng/mL NT-Pro-B Natriuret Pep 782 H (0-125) pg/mL Total Protein 7.8 (6.4-8.2) g/dL Albumin 3.9 (3.4-5.0) g/dL TSH, Ultra Sensitive 4.108 H (0.358-3.740) mIU/mL Meds: Medications Generic Name Dose Route Start Last Admin Trade Name Freq PRN Reason Stop Dose Admin Sodium Chloride 10 ml 08/01/19 09:27 08/01/19 09:45 Saline Flush FLUSH 10 ml ASDIRECTED PRN Administration Keep Vein Open Discontinued Medications Generic Name Dose Route Start Last Admin Trade Name Freq PRN Reason Stop Dose Admin Aspirin 324 mg 08/01/19 09:27 08/01/19 09:38 Aspirin CHEW 08/01/19 09:28 324 mg ONETIME ONE Administration Famotidine 40 mg 08/01/19 09:27 08/01/19 09:39 Pepcid IVPUSH 08/01/19 09:28 40 mg ONETIME ONE Administration Furosemide 60 mg 08/01/19 10:34 08/01/19 10:39 Lasix IVPUSH 08/01/19 10:35 60 mg NOW ONE Administration Metoprolol Tartrate 2.5 mg 03/06/20 10:25 08/01/19 10:25 Lopressor IVPUSH 08/01/19 10:26 2.5 mg ONETIME ONE Administration Potassium Chloride 20 meq 08/01/19 10:34 08/01/19 10:39 Klor-Con M20 PO 08/01/19 10:35 20 meq ONETIME ONE Administration Ticagrelor 180 mg 08/01/19 09:27 08/01/19 09:38 Brilinta PO 08/01/19 09:28 180 mg ONETIME ONE Administration - Radiology Interpretation Free Text/Narrative:: Workers Compensation Consultant showed initial frequent PVCs, occasional bigeminy, and additional occasional PACs with heart rate ranging in the high 50s to 80s Chest X-ray, portable, shows status post medial sternotomy with moderate COPD changes with additional mild centralized pulmonary congestion consistent with CHF and probable concomitant pulmonary hypertension. Mildly elevated right hemidiaphragm. No significant cardiomegaly, pulmonary infiltrates, pneumothorax , etc. Departure - Departure Time of Disposition: 11:45 Disposition: Refer to Observation Condition: Good Clinical Impression: COPD (chronic obstructive pulmonary disease), IDDM (insulin dependent diabetes mellitus), PVCs (premature ventricular contractions), Coronary artery disease, Hypothyroidism (acquired), D-dimer, elevated, Osteoarthritis, Renal insufficiency, PAC (premature atrial contraction), CHF, Congestive heart failure - Discharge Information *PRESCRIPTION DRUG MONITORING PROGRAM REVIEWED*: Not Applicable *COPY OF PRESCRIPTION DRUG MONITORING REPORT IN PATIENT MARY: Not Applicable Referrals: Lakesha Mcconnell NP [Primary Care Provider] - Forms: ED Department Discharge Care Plan Goals: See plan. Sepsis Event Note - Focused Exam Vital Signs: Vital Signs Temp Pulse Pulse Resp BP BP Pulse Ox 08/01/19 11:20 66 15 145/89 H 99 08/01/19 11:15 66 14 145/88 H 99 08/01/19 10:50 66 16 153/87 H 99 08/01/19 10:35 62 15 142/83 H 99 08/01/19 10:25 78 142/83 H 08/01/19 10:20 69 18 177/64 H 97 08/01/19 10:05 69 17 143/84 H 98 08/01/19 10:01 73 16 158/71 H 98 08/01/19 09:35 71 16 142/65 H 97 08/01/19 09:30 36.2 C 78 15 151/95 H 97 08/01/19 09:27 08/01/19 09:23 36.2 C 78 15 151/95 H 97 Pulse Ox 08/01/19 11:20 08/01/19 11:15 08/01/19 10:50 08/01/19 10:35 08/01/19 10:25 08/01/19 10:20 08/01/19 10:05 08/01/19 10:01 08/01/19 09:35 08/01/19 09:30 08/01/19 09:27 97 08/01/19 09:23 Date Exam was Performed: 08/01/19 Time Exam was Performed: 11:38 - Problem List & Annotations (1) Coronary artery disease SNOMED Code(s): 83095179 Code(s): I25.10 - ATHSCL HEART DISEASE OF [place] CORONARY ARTERY W/O ANG PCTRS Status: Acute Priority: High Current Visit: Yes Annotation/Comment :: No chest pain or anginal type symptoms, however chest pain protocol was initiated in the emergency room secondary patient's history of significant heart disease. Cardiology consultation depending on his clinical course. Initiate standard rule out SC orders. Note moderate CK elevation, including mild CK-MB elevation, however patient is normally is equally active with negative troponin I and cardiac index. Various therapeutic options were discussed with the patient and the family today. They initially wanted the patient transferred to [facility] for further evaluation, however then changed their minds and are requesting hospitalization in this facility. Continue reactive rehabilitation program in this facility once his cardiac status has been determined, etc. Qualifiers: Coronary Disease-Associated Artery/Lesion type: [place] artery [place] vs. transplanted heart: [place] heart Associated angina: with stable angina Qualified Code(s): I25.118 - Atherosclerotic heart disease of [place] coronary artery with other forms of angina pectoris (2) PVCs (premature ventricular contractions) SNOMED Code(s): 86967711 Code(s): I49.3 - VENTRICULAR PREMATURE DEPOLARIZATION Status: Chronic Priority: High Current Visit: Yes Onset Date: 05/01/19 Annotation/Comment: : Note patient did not take his medications this morning. Moderate effective bradycardia on an occasional basis the contrary to his bigeminy and frequent PVCs. Low-dose IV Lopressor given in the emergency room with improved arrhythmia. Continue medication adjustment depending on his clinical course. (3) CHF, Congestive heart failure SNOMED Code(s): 98537344 Code(s): I50.9 - HEART FAILURE, UNSPECIFIED Status: Acute Priority: High Current Visit: Yes Onset Date: ~07/28/19 Annotation/Comment:: Note history of grade 1 diastolic dysfunction. No postop echocardiogram since CABG on 05/05/19. Consider repeat evaluation depending on his clinical course. IV Lasix initiated in the emergency room. Additional NILSA inhibitor therapy as above. (4) PAC (premature atrial contraction) SNOMED Code(s): 517232499 Code(s): I49.1 - ATRIAL PREMATURE DEPOLARIZATION Status: Acute Priority: Medium Current Visit: Yes Onset Date: 08/01/19 Annotation/Comment:: Newly diagnosed. Continue beta rayshawn therapy for now. (5) Dyslipidemia SNOMED Code(s): 607709361 Code(s): E78.5 - HYPERLIPIDEMIA, UNSPECIFIED Status: Chronic Priority: Medium Current Visit: Yes Annotation/Comment:: Currently under therapy with repeat lipid panel in the a.m. 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 Glycosylated hemoglobin in the a.m. (7) COPD (chronic obstructive pulmonary disease) SNOMED Code(s): 89301129 Code(s): J44.9 - CHRONIC OBSTRUCTIVE PULMONARY DISEASE, UNSPECIFIED Status : Chronic Priority: High Current Visit: Yes Annotation/Comment:: Mild URI symptoms with no recent fever or bronchitic type symptoms. Observe for now. Consider PFTs. Qualifiers: COPD type: emphysema Emphysema type: panlobular Qualified Code(s): J43.1 - Panlobular emphysema (8) Hypothyroidism (acquired) SNOMED Code(s): 998624957 Code(s): E03.9 - HYPOTHYROIDISM, UNSPECIFIED Status: Chronic Priority: Medium Current Visit: Yes Annotation/Comment:: The patient does take iron supplementation. May need to stagger medications with mildly increased TSH. Increase TSH depending on his clinical course with repeat TSH recommended in 4 weeks. (9) D-dimer, elevated SNOMED Code(s): 136372484 Code(s): R79.89 - OTHER SPECIFIED ABNORMAL FINDINGS OF BLOOD CHEMISTRY Status: Acute Priority: High Current Visit: Yes Onset Date: 08/01/19 Annotation/Comment:: No clinical evidence of DVT or PE especially in light of excellent oxygenation on room air in the emergency room. Venous Doppler studies to be conducted shortly after admission. Consider CTA of the chest using PE protocol depending on his course. (10) Osteoarthritis SNOMED Code(s): 956338376 Code(s): M19.90 - UNSPECIFIED OSTEOARTHRITIS, UNSPECIFIED SITE Status: Chronic Priority: Medium Current Visit: Yes Annotation/Comment:: Stable by history. Qualifiers: Osteoarthritis location: multiple joints Osteoarthritis type: primary Qualified Code(s): M15.0 - Primary generalized (osteo)arthritis (11) Renal insufficiency SNOMED Code(s): 322310849, 870961985 Code(s): N28.9 - DISORDER OF KIDNEY AND URETER, UNSPECIFIED Status: Chronic Priority: Medium Current Visit: Yes Annotation/Comment:: Stable diabetic nephropathy by medical records. Initiate NILSA inhibitor therapy secondary to his diabetic nephropathy and CHF. Close observation of his renal status on an outpatient basis. - Problem List Review Problem List Initiated/Reviewed/Updated: Yes - My Orders Last 24 Hours: My Active Orders 08/01/19 09:27 Cardiac Monitoring [RC] . DIRECTED EKG Documentation Completion [RC] ASDIRECTED Oxygen Therapy, ED [RC] PRN Peripheral IV Care [RC] . DIRECTED Pulse Oximetry [RC] CONTINUOUS Up With Assistance [RC] PFP Vital Signs [RC] PFP Chest 1V Frontal [CR] Stat Sodium Chloride 0.9% [Saline Flush] 10 ml FLUSH ASDIRECTED PRN Obtain Past Medical Record [OM.PC] Urgent Peripheral IV Insertion Adult [OM.PC] Stat Resuscitation Status Stat 08/01/19 09:30 CULTURE STREP A CONFIRMATION [RM] Stat STREP SCRN A RAPID W CULT CONF [RM] Stat 08/01/19 Breakfast Nothing per Oral Now Diet [DIET] - Assessment/Plan Admission H&P: Please use this note as an admission H&P Last 24 Hours: My Active Orders 08/01/19 09:27 Cardiac Monitoring [RC] . DIRECTED EKG Documentation Completion [RC] ASDIRECTED Oxygen Therapy, ED [RC] PRN Peripheral IV Care [RC] . DIRECTED Pulse Oximetry [RC] CONTINUOUS Up With Assistance [RC] PFP Vital Signs [RC] PFP Chest 1V Frontal [CR] Stat Sodium Chloride 0.9% [Saline Flush] 10 ml FLUSH ASDIRECTED PRN Obtain Past Medical Record [OM.PC] Urgent Peripheral IV Insertion Adult [OM.PC] Stat Resuscitation Status Stat 08/01/19 09:30 CULTURE STREP A CONFIRMATION [RM] Stat STREP SCRN A RAPID W CULT CONF [RM] Stat 08/01/19 Breakfast Nothing per Oral Now Diet [DIET] Assessment:: As above Plan: As above. Extensive precautions were given to the patient and his family, who are in agreement with the treatment plan. The patient's condition is stable enough for observation status and general supervision. A [facility] physician assumes care in the a.m.
[2019-08-01] MEDS ORDERED: Ticagrelor 90 MG Tab PO ONE (09:27)
[2019-08-01] MEDS ORDERED: Famotidine 20 MG/2 ML SDV IVPUSH ONE (09:27)
[2019-08-01] MEDS ORDERED: Sodium Chloride 0.9% 10 ML Syringe FLUSH PRN ×2 (09:27→13:16)
[2019-08-01] MEDS ORDERED: Aspirin 81 MG Tab.Chew CHEW ONE (09:27)
[2019-08-01 09:51] LABS: PTT,PARTIAL THROMBOPLSTIN TIME 26.1 SEC (24.5-32.8)
[2019-08-01] MEDS ORDERED: Metoprolol Tartrate 5 MG/5 ML SDV IVPUSH ONE (10:25)
[2019-08-01] MEDS ORDERED: Furosemide 40 MG/4 ML VIAL IVPUSH ONE (10:34)
[2019-08-01] MEDS ORDERED: Potassium Chloride 20 MEQ Tab.ER PO ONE (10:34)
[2019-08-01] MEDS ORDERED: Loratadine 10 MG Tab PO PRN (12:31)
[2019-08-01] MEDS ORDERED: Temazepam 15 MG Cap PO PRN (13:16)
[2019-08-01] MEDS ORDERED: Enoxaparin 40 MG/0.4 ML Syringe SUBCUT SCH (13:30)
[2019-08-01] MEDS ORDERED: Acetaminophen 325 MG Tab PO PRN (14:00)
[2019-08-01] MEDS: Metoprolol Tartrate 25 MG Tab PO SCH ×2 (16:30→17:52)
[2019-08-01] MEDS: INSULIN ASPART SUBCUT SCH ×2 (17:51→18:42)
[2019-08-01] MEDS: Potassium Chloride 20 MEQ Tab.ER PO SCH (17:51)
[2019-08-01] MEDS: [UNRECOGNIZED DRUG - OTHER] SUBCUT SCH ×2 (17:51→18:42)
[2019-08-01] MEDS ORDERED: Lisinopril 10 MG Tab PO SCH (18:00)
[2019-08-01] MEDS ORDERED: Tamsulosin 0.4 MG Cap.ER PO SCH (20:00)
[2019-08-01] MEDS ORDERED: atorvaSTATin 10 MG Tab PO SCH (20:00)
[2019-08-01] MEDS ORDERED: Insulin Degludec [Tresiba Flextouch U-200] SUBCUT SCH (20:00)
[2019-08-01] MEDS: Furosemide 40 MG/4 ML VIAL IVPUSH SCH (20:39)
[2019-08-01] MEDS ORDERED: Insulin Lispro 100 Units/ML 3 ML Vial SUBCUT ONE (21:00)
[2019-08-01] MEDS ORDERED: NOVOLOG SUBCUT ONE (21:00)
[2019-08-02] MEDS: Furosemide 40 MG/4 ML VIAL IVPUSH SCH (05:35)
[2019-08-02] MEDS: Potassium Chloride 20 MEQ Tab.ER PO SCH (07:49)
[2019-08-02] MEDS: Metoprolol Tartrate 25 MG Tab PO SCH (07:50)
[2019-08-02] MEDS ORDERED: Ferrous Sulfate 325 MG Tab PO SCH (08:00)
[2019-08-02 09:14] VITALS: BP 108/62; PULSE 80
--- NOTE | 2019-08-02 09:15 | PCM.DCSUM1 ---
Discharge Summary - Hospital Course Free Text/Narrative:: Pt states he feels much better No chest pain, no SOB, no palpitations Diagnosis: Stroke: No - Discharge Data Discharge Date: 08/02/19 Discharge Disposition: Home, Self-Care 01 Condition: Good - Referral to Home Health Primary Care Physician: Lakesha Mcconnell NP - Discharge Diagnosis/Problem(s) (1) CHF, Congestive heart failure SNOMED Code(s): 06658965 ICD Code: I50.9 - HEART FAILURE, UNSPECIFIED Status: Acute Priority: High Current Visit: Yes Onset Date: ~07/28/19 Problem Details: Note history of grade 1 diastolic dysfunction. No postop echocardiogram since CABG on 05/05/19. Consider repeat evaluation depending on his clinical course. IV Lasix initiated in the emergency room. Additional NILSA inhibitor therapy as above. (2) COPD (chronic obstructive pulmonary disease) SNOMED Code(s): 64386566 ICD Code: J44.9 - CHRONIC OBSTRUCTIVE PULMONARY DISEASE, UNSPECIFIED Status : Chronic Priority: High Current Visit: Yes Problem Details: Mild URI symptoms with no recent fever or bronchitic type symptoms. Observe for now. Consider PFTs. Qualifiers: COPD type: emphysema Emphysema type: panlobular Qualified Code(s): J43.1 - Panlobular emphysema (3) IDDM (insulin dependent diabetes mellitus) SNOMED Code(s): 88750944 ICD Code: E11.9 - TYPE 2 DIABETES MELLITUS WITHOUT COMPLICATIONS; Z79.4 - PRISON (CURRENT) USE OF INSULIN Status: Chronic Priority: Medium Current Visit: Yes Problem Details: Accu-Cheks on a 3 times a day basis have been stable by patient history ranging in the [id number]. Glycosylated hemoglobin in the a.m. (4) PVCs (premature ventricular contractions) SNOMED Code(s): 48296003 ICD Code: I49.3 - VENTRICULAR PREMATURE DEPOLARIZATION Status: Chronic Priority: High Current Visit: Yes Onset Date: 05/01/19 Problem Details: Note patient did not take his medications this morning. Moderate effective bradycardia on an occasional basis the contrary to his bigeminy and frequent PVCs. Low-dose IV Lopressor given in the emergency room with improved arrhythmia. Continue medication adjustment depending on his clinical course. - Patient Instructions Diet: Diabetic Diet Activity: As Tolerated Driving: May Drive Today Showering/Bathing: May Shower Other/Special Instructions: Keep previous appointment 08/06/19 - Discharge Plan *PRESCRIPTION DRUG MONITORING PROGRAM REVIEWED*: Not Applicable *COPY OF PRESCRIPTION DRUG MONITORING REPORT IN PATIENT MARY: Not Applicable Home Medications: Home Meds Insulin Aspart [NovoLOG] 10 unit SUBCUT TIDAC 01/02/16 [History] Levothyroxine 75 mcg PO BEDTIME 01/02/16 [History] Loratadine [Claritin] 10 mg PO DAILY PRN 03/19/16 [History] Calcium Carbonate/Vitamin D3 [Calcium 600-Vit D3 800 Tab] 1 tab PO DAILY [History] Tamsulosin [Flomax] 0.8 mg PO BEDTIME 05/09/16 [History] Ubidecarenone [Coenzyme Q-10] 100 mg PO BEDTIME 05/09/16 [History] Aspirin [Children's Aspirin] 81 mg PO BEDTIME 05/19/16 [History] Insulin Degludec [Tresiba Flextouch U-200] 30 unit SUBCUT BEDTIME 03/07/17 [ History] atorvaSTATin [Lipitor] 20 mg PO BEDTIME 03/07/17 [History] Acetaminophen [Tylenol Extra Strength] 1,000 mg PO Q6HR PRN 08/01/19 [History] Ferrous Sulfate [Iron] 325 mg PO DAILY 08/01/19 [History] Metoprolol Tartrate 25 mg PO BID 08/01/19 [History] [place]-3 Fatty Acids/Fish Oil [Fish Oil 1,000 mg Softgel] 1 each PO DAILY [History] Oxygen Therapy Mode: Room Air Forms: ED Department Discharge Referrals: Lakesha Mcconnell NP [Primary Care Provider] - - Discharge Summary/Plan Comment DC Time >30 min.: No - General Info Date of Service: 08/02/19 Admission Dx/Problem (Free Text: Pt admitted with palpatations, IDDM, CHF, COPD Pt stable for discharge - Review of Systems General: Reports: No Symptoms Pulmonary: Reports: No Symptoms Cardiovascular: Reports: No Symptoms Gastrointestinal: Reports: No Symptoms Musculoskeletal: Reports: No Symptoms - Patient Data Vitals - Most Recent: Last Vital Signs Temp 98.1 F 08/02/19 02:00 Pulse 74 08/02/19 07:50 Resp 16 08/02/19 02:00 BP 108/72 08/02/19 07:50 Pulse Ox 99 08/02/19 02:00 Weight - Most Recent: 183 lb I&O - Last 24 hours: Intake & Output 08/01/19 08/02/19 08/02/19 18:59 02:59 10:59 Intake Total 480 Output Total 1800 Balance -1320 Lab Results - Last 24 hrs: Laboratory Results - last 24 hr 08/01/19 08/01/19 08/01/19 Range/Units 09:25 09:25 09:25 WBC 7.6 (4.0-10.2) K/uL RBC 4.71 (4.33-5.41) M/uL Hgb 14.1 D (13.1-16.8) g/dL Hct 44.1 (39.0-49.0) % MCV 93.6 (84.0-98.0) fL MCH 29.9 (28.2-33.3) pg MCHC 32.0 (31.7-36.0) g/dL RDW 16.1 H (11.2-14.1) % Plt Count 204 D (150-350) K/uL Neut % (Auto) 46.8 (45.0-80.0) % Lymph % (Auto) 36.0 (10.0-50.0) % [place] % (Auto) 11.0 (2.0-14.0) % Eos % (Auto) 5.5 H (0.0-5.0) % Baso % (Auto) 0.7 (0.0-2.0) % Neut # (Auto) 3.58 (1.40-7.00) K/uL Lymph # (Auto) 2.75 (0.50-3.50) K/uL [place] # (Auto) 0.84 (0.00-1.00) K/uL Eos # (Auto) 0.42 (0.00-0.50) K/uL Baso # (Auto) 0.05 (0.00-0.20) K/uL PT 9.8 (9.5-12.0) SEC INR 1.0 APTT 26.1 (24.5-32.8) SEC D-Dimer, Quantitative 614 H (0-400) ng/mL Sodium (136-145) mmol/L Potassium (3.5-5.1) mmol/L Chloride (98-107) mmol/L Carbon Dioxide (21.0-32.0) mmol/L BUN (7-18) mg/dL Creatinine (0.51-1.17) mg/dL Est Cr Clr Drug Dosing mL/min Estimated GFR (MDRD) mL/min Glucose (74-106) mg/dL POC Glucose (65-110) mg/dl Hemoglobin A1c (4.3-5.7) % Lactic Acid (0.4-2.0) mmol/L Uric Acid (2.6-7.2) mg/dL Calcium (8.5-10.1) mg/dL Magnesium (1.8-2.4) mg/dL Total Bilirubin (0.2-1.0) mg/dL AST (15-37) U/L ALT (12-78) U/L Alkaline Phosphatase (46-116) IU/L Creatine Kinase (26-308) U/L Creatine Kinase Index (0.0-2.5) % CK-MB (CK-2) (0.00-3.60) ng/mL Troponin I (0.000-0.056) ng/mL NT-Pro-B Natriuret Pep (0-125) pg/mL Total Protein (6.4-8.2) g/dL Albumin (3.4-5.0) g/dL Triglycerides (30-150) mg/dL Cholesterol (100-200) mg/dL LDL Cholesterol, Calc (0-100) mg/dL HDL Cholesterol (40-60) mg/dL TSH, Ultra Sensitive (0.358-3.740) mIU/mL 08/01/19 08/01/19 08/01/19 Range/Units 09:25 09:25 09:40 WBC (4.0-10.2) K/uL RBC (4.33-5.41) M/uL Hgb (13.1-16.8) g/dL Hct (39.0-49.0) % MCV (84.0-98.0) fL MCH (28.2-33.3) pg MCHC (31.7-36.0) g/dL RDW (11.2-14.1) % Plt Count (150-350) K/uL Neut % (Auto) (45.0-80.0) % Lymph % (Auto) (10.0-50.0) % [place] % (Auto) (2.0-14.0) % Eos % (Auto) (0.0-5.0) % Baso % (Auto) (0.0-2.0) % Neut # (Auto) (1.40-7.00) K/uL Lymph # (Auto) (0.50-3.50) K/uL [place] # (Auto) (0.00-1.00) K/uL Eos # (Auto) (0.00-0.50) K/uL Baso # (Auto) (0.00-0.20) K/uL PT (9.5-12.0) SEC INR APTT (24.5-32.8) SEC D-Dimer, Quantitative (0-400) ng/mL Sodium 141 (136-145) mmol/L Potassium 4.2 (3.5-5.1) mmol/L Chloride 107 (98-107) mmol/L Carbon Dioxide 25.1 (21.0-32.0) mmol/L BUN 36 H (7-18) mg/dL Creatinine 1.57 H (0.51-1.17) mg/dL Est Cr Clr Drug Dosing 40.64 mL/min Estimated GFR (MDRD) 44 mL/min Glucose 117 H (74-106) mg/dL POC Glucose (65-110) mg/dl Hemoglobin A1c (4.3-5.7) % Lactic Acid 0.9 (0.4-2.0) mmol/L Uric Acid 6.3 (2.6-7.2) mg/dL Calcium 9.3 (8.5-10.1) mg/dL Magnesium 1.9 (1.8-2.4) mg/dL Total Bilirubin 0.5 (0.2-1.0) mg/dL AST 26 (15-37) U/L ALT 32 (12-78) U/L Alkaline Phosphatase 75 (46-116) IU/L Creatine Kinase 641 H 446 H (26-308) U/L Creatine Kinase Index 0.6 0.6 (0.0-2.5) % CK-MB (CK-2) 3.90 H 2.80 (0.00-3.60) ng/mL Troponin I 0.000 0.000 (0.000-0.056) ng/mL NT-Pro-B Natriuret Pep 782 H (0-125) pg/mL Total Protein 7.8 (6.4-8.2) g/dL Albumin 3.9 (3.4-5.0) g/dL Triglycerides (30-150) mg/dL Cholesterol (100-200) mg/dL LDL Cholesterol, Calc (0-100) mg/dL HDL Cholesterol (40-60) mg/dL TSH, Ultra Sensitive 4.108 H (0.358-3.740) mIU/mL 08/01/19 08/01/19 08/01/19 Range/Units 12:38 15:48 20:39 WBC (4.0-10.2) K/uL RBC (4.33-5.41) M/uL Hgb (13.1-16.8) g/dL Hct (39.0-49.0) % MCV (84.0-98.0) fL MCH (28.2-33.3) pg MCHC (31.7-36.0) g/dL RDW (11.2-14.1) % Plt Count (150-350) K/uL Neut % (Auto) (45.0-80.0) % Lymph % (Auto) (10.0-50.0) % [place] % (Auto) (2.0-14.0) % Eos % (Auto) (0.0-5.0) % Baso % (Auto) (0.0-2.0) % Neut # (Auto) (1.40-7.00) K/uL Lymph # (Auto) (0.50-3.50) K/uL [place] # (Auto) (0.00-1.00) K/uL Eos # (Auto) (0.00-0.50) K/uL Baso # (Auto) (0.00-0.20) K/uL PT (9.5-12.0) SEC INR APTT (24.5-32.8) SEC D-Dimer, Quantitative (0-400) ng/mL Sodium (136-145) mmol/L Potassium (3.5-5.1) mmol/L Chloride (98-107) mmol/L Carbon Dioxide (21.0-32.0) mmol/L BUN (7-18) mg/dL Creatinine (0.51-1.17) mg/dL Est Cr Clr Drug Dosing mL/min Estimated GFR (MDRD) mL/min Glucose (74-106) mg/dL POC Glucose 101 181 H (65-110) mg/dl Hemoglobin A1c (4.3-5.7) % Lactic Acid (0.4-2.0) mmol/L Uric Acid (2.6-7.2) mg/dL Calcium (8.5-10.1) mg/dL Magnesium (1.8-2.4) mg/dL Total Bilirubin (0.2-1.0) mg/dL AST (15-37) U/L ALT (12-78) U/L Alkaline Phosphatase (46-116) IU/L Creatine Kinase 550 H (26-308) U/L Creatine Kinase Index 0.6 (0.0-2.5) % CK-MB (CK-2) 3.30 (0.00-3.60) ng/mL Troponin I 0.000 (0.000-0.056) ng/mL NT-Pro-B Natriuret Pep (0-125) pg/mL Total Protein (6.4-8.2) g/dL Albumin (3.4-5.0) g/dL Triglycerides (30-150) mg/dL Cholesterol (100-200) mg/dL LDL Cholesterol, Calc (0-100) mg/dL HDL Cholesterol (40-60) mg/dL TSH, Ultra Sensitive (0.358-3.740) mIU/mL 08/02/19 08/02/19 08/02/19 Range/Units 06:45 06:45 06:45 WBC 7.4 (4.0-10.2) K/uL RBC 4.64 (4.33-5.41) M/uL Hgb 13.8 (13.1-16.8) g/dL Hct 42.5 (39.0-49.0) % MCV 91.6 (84.0-98.0) fL MCH 29.7 (28.2-33.3) pg MCHC 32.5 (31.7-36.0) g/dL RDW 16.0 H (11.2-14.1) % Plt Count 210 (150-350) K/uL Neut % (Auto) 55.7 (45.0-80.0) % Lymph % (Auto) 31.2 (10.0-50.0) % [place] % (Auto) 10.4 (2.0-14.0) % Eos % (Auto) 2.3 (0.0-5.0) % Baso % (Auto) 0.4 (0.0-2.0) % Neut # (Auto) 4.10 (1.40-7.00) K/uL Lymph # (Auto) 2.30 (0.50-3.50) K/uL [place] # (Auto) 0.77 (0.00-1.00) K/uL Eos # (Auto) 0.17 (0.00-0.50) K/uL Baso # (Auto) 0.03 (0.00-0.20) K/uL PT (9.5-12.0) SEC INR APTT (24.5-32.8) SEC D-Dimer, Quantitative 230 (0-400) ng/mL Sodium 140 (136-145) mmol/L Potassium 4.1 (3.5-5.1) mmol/L Chloride 107 (98-107) mmol/L Carbon Dioxide 21.2 (21.0-32.0) mmol/L BUN 42 H (7-18) mg/dL Creatinine 2.06 H (0.51-1.17) mg/dL Est Cr Clr Drug Dosing 30.97 mL/min Estimated GFR (MDRD) 32 mL/min Glucose 135 H (74-106) mg/dL POC Glucose (65-110) mg/dl Hemoglobin A1c (4.3-5.7) % Lactic Acid (0.4-2.0) mmol/L Uric Acid (2.6-7.2) mg/dL Calcium 9.1 (8.5-10.1) mg/dL Magnesium (1.8-2.4) mg/dL Total Bilirubin 0.6 (0.2-1.0) mg/dL AST 19 (15-37) U/L ALT 26 (12-78) U/L Alkaline Phosphatase 68 (46-116) IU/L Creatine Kinase 326 H (26-308) U/L Creatine Kinase Index 0.6 (0.0-2.5) % CK-MB (CK-2) 2.00 (0.00-3.60) ng/mL Troponin I 0.000 (0.000-0.056) ng/mL NT-Pro-B Natriuret Pep 987 H (0-125) pg/mL Total Protein 7.3 (6.4-8.2) g/dL Albumin 3.6 (3.4-5.0) g/dL Triglycerides 173 H (30-150) mg/dL Cholesterol 210 H (100-200) mg/dL LDL Cholesterol, Calc 133 H (0-100) mg/dL HDL Cholesterol 42 (40-60) mg/dL TSH, Ultra Sensitive (0.358-3.740) mIU/mL 08/02/19 Range/Units 06:45 WBC (4.0-10.2) K/uL RBC (4.33-5.41) M/uL Hgb (13.1-16.8) g/dL Hct (39.0-49.0) % MCV (84.0-98.0) fL MCH (28.2-33.3) pg MCHC (31.7-36.0) g/dL RDW (11.2-14.1) % Plt Count (150-350) K/uL Neut % (Auto) (45.0-80.0) % Lymph % (Auto) (10.0-50.0) % [place] % (Auto) (2.0-14.0) % Eos % (Auto) (0.0-5.0) % Baso % (Auto) (0.0-2.0) % Neut # (Auto) (1.40-7.00) K/uL Lymph # (Auto) (0.50-3.50) K/uL [place] # (Auto) (0.00-1.00) K/uL Eos # (Auto) (0.00-0.50) K/uL Baso # (Auto) (0.00-0.20) K/uL PT (9.5-12.0) SEC INR APTT (24.5-32.8) SEC D-Dimer, Quantitative (0-400) ng/mL Sodium (136-145) mmol/L Potassium (3.5-5.1) mmol/L Chloride (98-107) mmol/L Carbon Dioxide (21.0-32.0) mmol/L BUN (7-18) mg/dL Creatinine (0.51-1.17) mg/dL Est Cr Clr Drug Dosing mL/min Estimated GFR (MDRD) mL/min Glucose (74-106) mg/dL POC Glucose (65-110) mg/dl Hemoglobin A1c 7.0 H (4.3-5.7) % Lactic Acid (0.4-2.0) mmol/L Uric Acid (2.6-7.2) mg/dL Calcium (8.5-10.1) mg/dL Magnesium (1.8-2.4) mg/dL Total Bilirubin (0.2-1.0) mg/dL AST (15-37) U/L ALT (12-78) U/L Alkaline Phosphatase (46-116) IU/L Creatine Kinase (26-308) U/L Creatine Kinase Index (0.0-2.5) % CK-MB (CK-2) (0.00-3.60) ng/mL Troponin I (0.000-0.056) ng/mL NT-Pro-B Natriuret Pep (0-125) pg/mL Total Protein (6.4-8.2) g/dL Albumin (3.4-5.0) g/dL Triglycerides (30-150) mg/dL Cholesterol (100-200) mg/dL LDL Cholesterol, Calc (0-100) mg/dL HDL Cholesterol (40-60) mg/dL TSH, Ultra Sensitive (0.358-3.740) mIU/mL ANA ROSA Results - Last 24 hrs: Microbiology 08/01/19 09:30 Group A Streptococcus Rapid Screen - Final Throat NEGATIVE STREP A SCREEN REFERENCE RANGE: NEGATIVE 08/01/19 09:30 Influenza Type A Antigen Screen - Final Nasal, Left NEGATIVE INFLUENZA A VIRUS AG REFERENCE RANGE: NEGATIVE Influenza Type B Antigen Screen - Final NEGATIVE INFLUENZA B VIRUS AG REFERENCE RANGE: NEGATIVE Med Orders - Current: Current Medications Acetaminophen (Tylenol) 650 mg PO Q4H PRN PRN Reason: Pain Last Admin: 08/02/19 02:29 Dose: 650 mg Atorvastatin Calcium (Lipitor) 20 mg PO BEDTIME [facility] Last Admin: 08/01/19 19:30 Dose: 20 mg Coenzyme Q10 (Coenzyme Q10) 100 mg PO BEDTIME [facility] Last Admin: 08/01/19 19:31 Dose: 100 mg Enoxaparin Sodium (Lovenox) 40 mg SUBCUT Q24H [facility] Last Admin: 08/01/19 16:29 Dose: 40 mg Ferrous Sulfate (Ferrous Sulfate) 325 mg PO DAILY [facility] Last Admin: 08/02/19 07:49 Dose: 325 mg Furosemide (Lasix) 40 mg IVPUSH Q8H [facility] Last Admin: 08/02/19 05:35 Dose: Not Given Lisinopril (Prinivil) 10 mg PO QPM [facility] Last Admin: 08/01/19 17:51 Dose: 10 mg Loratadine (Claritin) 10 mg PO DAILY PRN PRN Reason: Allergies Metoprolol Tartrate (Lopressor) 25 mg PO BID [facility] Last Admin: 08/02/19 07:50 Dose: 25 mg Novolog Pt Own 0 each SUBCUT QIDACANDBED [facility]; Protocol Potassium Chloride (Klor-Con M20) 20 meq PO TID [facility] Last Admin: 08/02/19 07:49 Dose: 20 meq Sodium Chloride (Saline Flush) 10 ml FLUSH ASDIRECTED PRN PRN Reason: Keep Vein Open Last Admin: 08/01/19 09:45 Dose: 10 ml Sodium Chloride (Saline Flush) 10 ml FLUSH Q12HR PRN PRN Reason: Keep Vein Open Tamsulosin HCl (Flomax) 0.8 mg PO BEDTIME [facility] Last Admin: 08/01/19 19:30 Dose: 0.8 mg Temazepam (Restoril) 15 mg PO BEDTIME PRN PRN Reason: Insomnia Discontinued Medications Aspirin (Aspirin) 324 mg CHEW ONETIME ONE Stop: 08/01/19 09:28 Last Admin: 08/01/19 09:38 Dose: 324 mg Famotidine (Pepcid) 40 mg IVPUSH ONETIME ONE Stop: 08/01/19 09:28 Last Admin: 08/01/19 09:39 Dose: 40 mg Furosemide (Lasix) 60 mg IVPUSH NOW ONE Stop: 08/01/19 10:35 Last Admin: 08/01/19 10:39 Dose: 60 mg Insulin Human Lispro (Humalog) 0 unit SUBCUT ONETIME ONE; Protocol Stop: 08/01/19 21:01 Metoprolol Tartrate (Lopressor) 2.5 mg IVPUSH ONETIME ONE Stop: 08/01/19 10:26 Last Admin: 08/01/19 10:25 Dose: 2.5 mg Insulin Aspart [ (Novolog] 100u/Ml Pen) 10 unit SUBCUT TIDAC [facility] Last Admin: 08/01/19 18:42 Dose: 10 unit Insulin Degludec [ Tresiba Flextouch U- 200] 30 unit SUBCUT BEDTIME CLARIBEL Novolog Pt Own 0 each SUBCUT ONETIME ONE; Protocol Stop: 08/01/19 21:01 Last Admin: 08/01/19 20:40 Dose: 2 each Potassium Chloride (Klor-Con M20) 20 meq PO ONETIME ONE Stop: 08/01/19 10:35 Last Admin: 08/01/19 10:39 Dose: 20 meq Ticagrelor (Brilinta) 180 mg PO ONETIME ONE Stop: 08/01/19 09:28 Last Admin: 08/01/19 09:38 Dose: 180 mg - Exam Lungs: Reports: Clear to Auscultation, Normal Respiratory Effort Cardiovascular: Reports: Regular Rate GI/Abdominal Exam: Soft, Non-Tender Extremities: No Pedal Edema
[2019-08-02] MEDS ORDERED: NOVOLOG SUBCUT SCH (12:00)
== END 2019-08-02 10:05 | disposition home or self-care (01) ==
LOC: LL.ED 09:23 → LL.MS 11:37 → UNDOADMOB 11:37 → LL.MS 12:26
PROVIDERS: ADMIT Family Medicine; ATTEND Family Medicine
DX: I13.0 Hypertensive heart and chronic kidney disease with heart failure and stage 1 through stage 4 chronic kidney disease, or unspecified chronic kidney disease (principal); I50.30 Unspecified diastolic (congestive) heart failure; J43.1 Panlobular emphysema; E11.22 Type 2 diabetes mellitus with diabetic chronic kidney disease; N18.9 Chronic kidney disease, unspecified; I25.10 Atherosclerotic heart disease of native coronary artery without angina pectoris; I49.3 Ventricular premature depolarization; Z79.82 Long term (current) use of aspirin; Z79.899 Other long term (current) drug therapy; Z88.0 Allergy status to penicillin; Z88.8 Allergy status to other drugs, medicaments and biological substances; Z79.4 Long term (current) use of insulin; E03.9 Hypothyroidism, unspecified; R79.89 Other specified abnormal findings of blood chemistry; E78.5 Hyperlipidemia, unspecified; M15.0 Primary generalized (osteo)arthritis
CPT/HCPCS: 36415; 71045; 80053; 80061; 82550; 82553; 82962; 83036; 83605; 83735; 83880; 84443; 84484; 84550; 85025; 85379; 85610; 85730; 87081; 87430; 87804; 93005; 93970; 96372; 96374; 96375; 96376; 99285; A9270; G0378; J1650; J1940; J3490

== ENCOUNTER 2022-02-12 11:34 | Emergency (ER) | payer MEDICARE, BC ==
[2022-02-12 12:13] VITALS: BP 132/72; PULSE 87
[2022-02-12 12:40] LABS: ANION GAP 7.3 meq/L (7-15); CHLORIDE,CL 107 mmol/L (98-107); SODIUM,NA 140 mmol/L (136-145)
[2022-02-12 12:41] LABS: ESTIMATED GFR 39 mL/min (>=60)
== END 2022-02-12 13:55 | disposition home or self-care (01) ==
LOC: LL.ED 11:34
DX: U07.1 COVID-19 (principal); I25.810 Atherosclerosis of coronary artery bypass graft(s) without angina pectoris; I13.0 Hypertensive heart and chronic kidney disease with heart failure and stage 1 through stage 4 chronic kidney disease, or unspecified chronic kidney disease; E11.22 Type 2 diabetes mellitus with diabetic chronic kidney disease; N18.30 Chronic kidney disease, stage 3 unspecified; I50.9 Heart failure, unspecified; D63.1 Anemia in chronic kidney disease; E78.00 Pure hypercholesterolemia, unspecified; E11.21 Type 2 diabetes mellitus with diabetic nephropathy; E11.42 Type 2 diabetes mellitus with diabetic polyneuropathy; E03.9 Hypothyroidism, unspecified; Z88.0 Allergy status to penicillin; Z88.1 Allergy status to other antibiotic agents; Z88.5 Allergy status to narcotic agent; Z79.4 Long term (current) use of insulin; Z79.82 Long term (current) use of aspirin; Z79.899 Other long term (current) drug therapy
CPT/HCPCS: 36415; 80053; 85025; 99285; U0002; 99284

== ENCOUNTER 2024-07-10 12:06 | Day surgery (SDC) | payer MEDICARE, BC ==
[~2024-07-10 12:06] MED LIST: Midazolam 1 MG/ML 2 ML SDV ONE; Propofol 200 MG/20 ML SDV ONE
[2024-07-10] MEDS ORDERED: Sodium Chloride 0.9% 10 ML Syringe FLUSH PRN (12:15)
[2024-07-10] MEDS: Lactated Ringers 1,000 ML IV SCH (13:05)
[2024-07-10 13:55] VITALS: BP 108/63; PULSE 58
== END 2024-07-10 14:21 | disposition home or self-care (01) ==
LOC: LL.SDS 12:06
PROVIDERS: ATTEND Surgery
DX: Z12.11 Encounter for screening for malignant neoplasm of colon (principal); R19.5 Other fecal abnormalities; D12.4 Benign neoplasm of descending colon; E11.22 Type 2 diabetes mellitus with diabetic chronic kidney disease; I12.9 Hypertensive chronic kidney disease with stage 1 through stage 4 chronic kidney disease, or unspecified chronic kidney disease; N18.30 Chronic kidney disease, stage 3 unspecified; E03.9 Hypothyroidism, unspecified; Z79.890 Hormone replacement therapy; Z79.4 Long term (current) use of insulin; Z79.899 Other long term (current) drug therapy; Z88.5 Allergy status to narcotic agent; Z88.8 Allergy status to other drugs, medicaments and biological substances
CPT/HCPCS: 00811; 45385; 99100; J2250; J2704; J7120; 88305